=== PATIENT | male | born 1995 | race Caucasian/White ===

== ENCOUNTER 2017-09-24 19:28 | Emergency (ER) | payer MEDICAID ==
[2017-09-24] MEDS ORDERED: predniSONE TAB* 20 MG PO ONE (19:36)
[2017-09-24] MEDS ORDERED: Famotidine TAB* 20 MG PO ONE (19:36)
[2017-09-24] MEDS ORDERED: Albuterol 2.5 MG/3 ML NEB.SOL* (0.083%) INH ONE (19:37)
[2017-09-24 19:40] VITALS: BP 123/83
--- NOTE | 2017-09-24 19:42 | UC ---
Allergic Reaction HPI - HPI Summary HPI Summary: The patient is a 22 y/o M presenting to [facility] c/o bee stings to his left eyelid and left foot within the last twenty minutes. He was at a park when there was suddenly a swarm of bees, causing him to get stung. His left eye is swollen and erythematous. The aching pain is rated 10/10 in severity. He denies difficulty breathing. He has not had any prior experience with bee stings so he isn't sure if he is allergic to them. He is allergic to antihistamines. Hx of asthma. - History of Current Complaint Stated Complaint: BEE STINGS Hx Obtained From: Patient Onset/Duration: Sudden Onset, Lasting Minutes, Still Present Severity Initially: Severe Severity Currently: Severe Pain Intensity: 10 Pain Scale Used: 0-10 Numeric Location: Discrete @ - left eye and left foot Character: Swelling, Pain Aggravating Factor(s): Nothing Alleviating Factor(s): Nothing Associated Signs And Symptoms: Positive: Other: - swelling, erythema, and pain in left eye and left foot from bee stings. Negative: Difficulty Breathing - Related Hx Possible Reaction To: Insect - bee sting - Allergies/Home Medications Allergies/Adverse Reactions: Allergies Allergy/AdvReac Type Severity Reaction Status Date / Time diphenhydramine Allergy Hives Verified 09/24/17 19:40 [From Benadryl] PMH/Surg Hx/FS Hx/Imm Hx Other Endocrine History: NEGATIVE: diabetes Respiratory History: Asthma - Surgical History Surgical History: Yes Surgery Procedure, Year, and Place: left Ear after rupture - Family History Known Family History: Positive: Unknown - Patient is a poor historian. - Social History Alcohol Use: Weekly Substance Use Type: Marijuana, Prescribed Substance Use Comment - Amount & Last Used: rx:suboxone Smoking Status (MU): Heavy Every Day Tobacco Smoker Type: Cigarettes, Smokeless Tobacco Amount Used/How Often: varies <1/2 ppd and 1 tin per day Household Exposure Type: Cigarettes - Immunization History Vaccination Up to Date: Yes Review of Systems Skin: Other - erythema in left eyelid, bee sting to left eye and left foot Eyes: Other - swelling in left occipital area Respiratory: Other - NEGATIVE: difficulty breathing All Other Systems Reviewed And Are Negative: Yes Physical Exam - Summary Physical Exam Summary: General: well-appearing, no pain distress Skin: warm, color reflects adequate perfusion, dry, swelling over left foot Head: normal Eyes: EOMI, DREW, swelling over left orbit ENT: normal Neck: supple, nontender Respiratory: CTA, breath sounds present, hyperventilating, coughing Cardiovascular: RRR Abdomen: soft, nontender Bowel: present Musculoskeletal: normal, strength/ROM intact Neurological: sensory/motor intact, A&O x3 Psychological: affect/mood appropriate Triage Information Reviewed: Yes Vital Signs Reviewed: Yes Allergic Reaction Course/Dx - Course Course Of Treatment: Medications reviewed. Allergies noted. NO RESPIRATORY DISTRESS. THE PATIENT RECEIVED PEPCID 40MG PO, PREDNISONE 60MG PO AND AN ALBUTEROL NEBULIZER IN CLINIC. BREATHING CLEAR AFTER THE ALBUTEROL. PATIENT WAS HYPERVENTILATING AND HAD CONTRACTURES OF HIS HANDS. STAFF DISCUSSED SLOWING HIS BREATHING DOWN. HE ELOPED AT THIS TIME. - Differential Dx/Diagnosis Provider Diagnoses: LOCALIZED REACTION TO BEE STINGS ON LEFT FACE AND FOOT. HYPERVENTILATION Discharge - Sign-Out/Discharge Documenting (check all that apply): Patient Departure - Patient will be discharged home. - Discharge Plan Condition: Stable Disposition: ELOPEMENT Referrals: No Primary Care Phys,NOPCP [Primary Care Provider] - [facility] [Outside] - Billing Disposition and Condition Condition: STABLE Disposition: Elopement Attestation Statement Scribe Attestation: This is hortencia Caldera documenting for attending Dr. Ryder Wall MD. User Type: Provider with Scribe Provider Attestation: The documentation recorded by the scribe accurately reflects the service I personally performed and the decisions made by me.
== END 2017-09-24 20:00 | disposition left against medical advice (07) ==
LOC: UCEAST 19:28
DX: T63.441A Toxic effect of venom of bees, accidental (unintentional), initial encounter (principal); H02.846 Edema of left eye, unspecified eyelid; R60.0 Localized edema; Y92.830 Public park as the place of occurrence of the external cause; R06.4 Hyperventilation; Z88.8 Allergy status to other drugs, medicaments and biological substances; F17.210 Nicotine dependence, cigarettes, uncomplicated; F17.220 Nicotine dependence, chewing tobacco, uncomplicated
CPT/HCPCS: 99212; A9270-GY; G0463; J7512

== ENCOUNTER 2017-12-29 12:00 | Emergency (ER) | payer SELFPAY ==
[2017-12-29 12:28] VITALS: BP 131/86
--- NOTE | 2017-12-29 12:29 | UC ---
Hand/Wrist HPI - HPI Summary HPI Summary: 22 yo male presents with left hand pain. He tells me that last night he was in a verbal argument with a friend and became agitated and punched a door with his left hand. Since that time has had pain and swelling to left MCP. Has not taken anything for the pain. Has not been applying ice. - History Of Current Complaint Chief Complaint: UCUpperExtremity Stated Complaint: HAND INJURY Time Seen by Provider: 12/29/17 12:28 Hx Obtained From: Patient Onset/Duration: Sudden Onset Severity Initially: Severe Severity Currently: Severe Pain Intensity: 9 Pain Scale Used: 0-10 Numeric - Allergies/Home Medications Allergies/Adverse Reactions: Allergies Allergy/AdvReac Type Severity Reaction Status Date / Time diphenhydramine Allergy Hives Verified 12/29/17 12:28 [From Benadryl] PMH/Surg Hx/FS Hx/Imm Hx - Additional Past Medical History Additional PMH: NONE - Surgical History Surgical History: Yes Surgery Procedure, Year, and Place: left Ear after rupture - Family History Known Family History: Positive: Unknown - Patient is a poor historian. Negative: Diabetes - Social History Occupation: Student Lives: With Family Alcohol Use: Weekly Substance Use Type: Marijuana, Prescribed Substance Use Comment - Amount & Last Used: rx:suboxone Smoking Status (MU): Heavy Every Day Tobacco Smoker Type: Cigarettes, Smokeless Tobacco Amount Used/How Often: varies <1/2 ppd and 1 tin per day Household Exposure Type: Cigarettes - Immunization History Vaccination Up to Date: Yes Review of Systems All Other Systems Reviewed And Are Negative: Yes Constitutional: Positive: Negative Skin: Positive: Negative Respiratory: Positive: Negative Cardiovascular: Positive: Negative Neurovascular: Positive: Negative Musculoskeletal: Positive: Other: - Left hand pain Neurological: Positive: Negative Psychological: Positive: Negative Physical Exam - Summary Physical Exam Summary: GENERAL: NAD. WDWN. No pain distress. SKIN: No rashes, sores, lesions, or open wounds. CHEST: No accessory muscle use. Breathing comfortably and in no distress. CV: Pulses intact radial and ulnar. Cap refill <2seconds MSK: LEFT HAND: At 5th MCP there is TTP and mild edema and ecchymosis. Decreased ROM and unable to make a fist due to pain. No obvious bony deformities. No snuffbox tenderness. Wrist NTTP and FROM NEURO: Alert. Sensations intact hand and all fingers. PSYCH: Age appropriate behavior. Triage Information Reviewed: Yes Vital Signs: Initial Vital Signs Temp 98.8 F 12/29/17 12:24 Pulse 77 12/29/17 12:24 Resp 18 12/29/17 12:24 BP 131/86 12/29/17 12:24 Pulse Ox 97 12/29/17 12:24 Vital Signs Reviewed: Yes Hand/Wrist Course/Dx - Course Course Of Treatment: XR: IMPRESSION: NO ACUTE OSSEOUS INJURY. IF SYMPTOMS PERSIST, RECOMMEND REPEAT IMAGING. Pt advised to take ibuprofen and RICE the hand for pain relief. - Differential Dx/Diagnosis Provider Diagnoses: Left hand contusion Discharge - Sign-Out/Discharge Documenting (check all that apply): Patient Departure All imaging exams completed and their final reports reviewed: Yes - Discharge Plan Condition: Stable Disposition: HOME Patient Education Materials: Contusion in Adults (ED) Referrals: No Primary Care Phys,NOPCP [Primary Care Provider] - Additional Instructions: If you develop a fever, shortness of breath, chest pain, new or worsening symptoms - please call your PCP or go to the ED. Your blood pressure was high at todays visit. Please see your primary provider within 4 weeks for recheck and re-evaluation. 1) Rest, Ice, and elevate your hand as much as possible to reduce pain and swelling 2) May take ibuprofen 400-600mg every 6-8hours as needed for pain - Billing Disposition and Condition Condition: STABLE Disposition: Home
== END 2017-12-29 13:31 | disposition home or self-care (01) ==
LOC: UCEAST 12:00
DX: S60.222A Contusion of left hand, initial encounter (principal); F17.210 Nicotine dependence, cigarettes, uncomplicated; Z88.8 Allergy status to other drugs, medicaments and biological substances; W22.8XXA Striking against or struck by other objects, initial encounter; Y92.9 Unspecified place or not applicable
CPT/HCPCS: 99211; G0463